=== PATIENT | male | born 1990 | race Caucasian/White ===

== ENCOUNTER 2016-12-04 16:09 | Emergency (ER) | payer OTHER, SELFPAY ==
[~2016-12-04] VITALS: Ht 185.4 cm; Wt 118.2 kg
[2016-12-04 16:10] VITALS: BP 129/73
[2016-12-04] MEDS ORDERED: SING10TA32 PO (16:19)
[2016-12-04] MEDS ORDERED: CELE40TA PO (16:19)
[2016-12-04] MEDS ORDERED: OMEP40CA2 PO (16:19)
[2016-12-04] MEDS ORDERED: KEFL500C17 PO (16:47)
== END 2016-12-04 17:02 | disposition home or self-care (01) ==
LOC: M ED 16:09
DX: L03.012 Cellulitis of left finger (principal); Z87.891 Personal history of nicotine dependence

== ENCOUNTER 2019-01-24 10:26 | Emergency (ER) | payer OTHER, SELFPAY ==
[~2019-01-24] VITALS: Ht 188 cm; Wt 111.3 kg
[2019-01-24 10:26] VITALS: BP 157/83
[~2019-01-24 10:26] MED LIST: CELE40TA PO; KEFL500C17 PO; OMEP40CA97 PO; SING10TA32 PO
[2019-01-24] MEDS ORDERED: ADACEL/BOOSTRIX VACCINE (DIPHTH/PERTUSS/ACELL/TETANUS)0.5ML SYR (90715) IM ONE (11:30)
== END 2019-01-24 11:30 | disposition home or self-care (01) ==
LOC: M ED 10:26
DX: S61.211A Laceration without foreign body of left index finger without damage to nail, initial encounter (principal); W26.0XXA Contact with knife, initial encounter; Y92.099 Unspecified place in other non-institutional residence as the place of occurrence of the external cause; Y93.9 Activity, unspecified; Y99.9 Unspecified external cause status; K21.9 Gastro-esophageal reflux disease without esophagitis; F17.200 Nicotine dependence, unspecified, uncomplicated; Z79.899 Other long term (current) drug therapy; Z91.013 Allergy to seafood; Z91.018 Allergy to other foods

== ENCOUNTER → 2020-11-01 | Outpatient (REF) | payer OTHER ==
[~2020-11-01] MED LIST changes: +OMEP40CA4 PO; -OMEP40CA97 PO
== END ==
LOC: M LAB REF 22:06
PROVIDERS: ATTEND Physician Assistant
DX: J02.9 Acute pharyngitis, unspecified (principal)